=== PATIENT | female | born 1970 | race Caucasian/White ===

== ENCOUNTER 2019-03-28 18:02 | Emergency (ER) | payer OTHER ==
[~2019-03-28] VITALS: Ht 162.6 cm; Wt 63.5 kg
== END 2019-03-28 20:19 | disposition home or self-care (01) ==
LOC: ER 18:02
DX: R10.12 Left upper quadrant pain (principal); M79.18 Myalgia, other site

== ENCOUNTER 2019-05-12 12:42 | Outpatient (CLI) | payer OTHER | END 2019-05-12 13:00 | disposition home or self-care (01) | LOC: MAMO-SONO 12:42 | DX: Z12.31 Encounter for screening mammogram for malignant neoplasm of breast (principal); Z87.898 Personal history of other specified conditions; N60.11 Diffuse cystic mastopathy of right breast; N60.12 Diffuse cystic mastopathy of left breast ==

== ENCOUNTER 2020-06-12 08:41 | Outpatient (CLI) | payer OTHER | END 2020-06-12 08:55 | disposition home or self-care (01) | LOC: MAMO-SONO 08:41 | PROVIDERS: ATTEND Obstetrics & Gynecology | DX: Z12.31 Encounter for screening mammogram for malignant neoplasm of breast (principal); N60.11 Diffuse cystic mastopathy of right breast; N60.12 Diffuse cystic mastopathy of left breast ==